=== PATIENT | female | born 1960 | race Native Hawaiian/Other Pacific Islander ===

== ENCOUNTER 2017-07-08 10:22 | Emergency (ER) | payer OTHER ==
[2017-07-08] MEDS ORDERED: SODIUM CHLORIDE 0.9% 1,000 ML IV STA (11:09)
--- NOTE | 2017-07-08 11:10 | ED ---
Abdominal Pain HPI - General Chief Complaint: Abdominal Pain Stated Complaint: abdominal pain Time Seen by Provider: 07/08/17 10:39 Source: patient, RN notes reviewed, old records reviewed Mode of arrival: ambulatory Limitations: no limitations - History of Present Illness Initial Comments: This is a 56-year-old female presents emergency Department chief complaint of abdominal fullness, and extension. Patient reports that she's had a bowel movement approximately 3 days ago and states she feels constipated. She was sent over here by medics breath or further evaluation. She reports she's had no fever or chills. She states she feels nauseated but has no vomiting. Patient reports that she did tolerate her meals earlier today. She states that she has had a history of diverticulitis but this does not feel anything similar to that. She was told that she does have a urinary tract infection at the urgent care. She was started on antibiotic. Patient states that she is also concern for sexually transmitted infection and would like to be tested.Patient denies any recent fever, chills, shortness of breath, chest pain, back pain, vomiting, numbness or tingling, dysuria or hematuria, constipation or diarrhea, headaches or visual changes, or any other current symptoms - Related Data Home Medications Medication Instructions Recorded Confirmed Aspirin 325 mg PO DAILY 07/08/17 07/08/17 Multivitamins, Thera [Multivitamin 1 tab PO DAILY 07/08/17 07/08/17 (formulary)] metFORMIN HCL 1,000 mg PO BID 07/08/17 07/08/17 Allergies Allergy/AdvReac Type Severity Reaction Status Date / Time No Known Allergies Allergy Verified 07/08/17 10:39 Review of Systems ROS Statement: Those systems with pertinent positive or pertinent negative responses have been documented in the HPI. ROS Other: All systems not noted in ROS Statement are negative. Past Medical History Past Medical History: Asthma, Diabetes Mellitus Additional Past Medical History / Comment(s): diverticulitis, TB History of Any Multi-Drug Resistant Organisms: None Reported Past Surgical History: Section, Cholecystectomy, Tonsillectomy, Tubal Ligation Past Psychological History: No Psychological Hx Reported Smoking Status: Current every day smoker Past Alcohol Use History: None Reported Past Drug Use History: None Reported General Exam - General Exam Comments Initial Comments: 56-year-old female. No acute distress. Limitations: no limitations General appearance: alert, in no apparent distress Head exam: Present: atraumatic, normocephalic, normal inspection Eye exam: Present: normal appearance, PERRL, EOMI. Absent: scleral icterus, conjunctival injection, periorbital swelling ENT exam: Present: normal exam, mucous membranes moist Neck exam: Present: normal inspection. Absent: tenderness, meningismus, lymphadenopathy Respiratory exam: Present: normal lung sounds bilaterally. Absent: respiratory distress, wheezes, rales, rhonchi, stridor GI/Abdominal exam: Present: soft, normal bowel sounds. Absent: distended, tenderness, guarding, rebound, rigid Extremities exam: Present: normal inspection, full ROM, normal capillary refill. Absent: tenderness, pedal edema, joint swelling, calf tenderness Back exam: Present: normal inspection Neurological exam: Present: alert, oriented X3, CN II-XII intact Psychiatric exam: Present: normal affect, normal mood Course Vital Signs 07/08/17 07/08/17 10:31 12:57 Temperature 98.1 F 97.7 F Pulse Rate 72 68 Respiratory 20 18 Rate Blood Pressure 135/63 143/70 O2 Sat by Pulse 100 97 Oximetry Medical Decision Making - Medical Decision Making 6-year-old female presents emergency Department encouraged to come here urgent care. She reports she has a fullness in her abdomen. Denies chest pain shortness breath. Patient states that she's not had a bowel movement the past 2 days. Patient also reports she is concerned for urinary tract infection. This time urinalysis is positive for infection, culture will be obtained. Patient was discharged with Bactrim by the urgent care. She'll be given a starter pack here. There is a patient's labwork was reviewed and were within normal limits. Patient does have some minor abdominal distention. She has been able to tolerate food and fluids with the emergency department. Patient be discharged with magnesium citrate and Dulcolax. Discussed using these and taking that medication for a urinary tract infection. Discussed following up with primary care provider. Discussed that if she has vomiting, fever or any other abnormal she should return here for a CT. Patient reports she does not want a CAT scan at this time. Patient agrees treatment plan will comply. Return parameters were discussed. - Lab Data Result diagrams: 07/08/17 11:13 07/08/17 11:13 Lab Results 07/08/17 07/08/1707/08/17 Range/Units 11:13 11:13 11:13 WBC 5.5 (3.8-10.6) k/uL RBC 4.52 (3.80-5.40) m/uL Hgb 11.9 (11.4-16.0) gm/dL Hct 35.9 (34.0-46.0) % MCV 79.5 L (80.0-100.0) fL MCH 26.4 (25.0-35.0) pg MCHC 33.2 (31.0-37.0) g/dL RDW 15.5 (11.5-15.5) % Plt Count 169 (150-450) k/uL Neutrophils % 62 % Lymphocytes % 29 % Monocytes % 6 % Eosinophils % 1 % Basophils % 1 % Neutrophils # 3.4 (1.3-7.7) k/uL Lymphocytes # 1.6 (1.0-4.8) k/uL Monocytes # 0.3 (0-1.0) k/uL Eosinophils # 0.1 (0-0.7) k/uL Basophils # 0.0 (0-0.2) k/uL PT 9.9 (9.0-12.0) sec INR 1.0 (<1.2) APTT 24.2 (22.0-30.0) sec Sodium 138 (137-145) mmol/L Potassium 4.5 (3.5-5.1) mmol/L Chloride 105 (98-107) mmol/L Carbon Dioxide 22 (22-30) mmol/L Anion Gap 11 mmol/L BUN 14 (7-17) mg/dL Creatinine 0.50 L (0.52-1.04) mg/dL Est GFR (MDRD) Af Amer >60 (>60 ml/min/1.73 sqM) Est GFR (MDRD) Non-Af >60 (>60 ml/min/1.73 sqM) Glucose 238 H (74-99) mg/dL Calcium 9.3 (8.4-10.2) mg/dL Total Bilirubin 0.3 (0.2-1.3) mg/dL AST 16 (14-36) U/L ALT 30 (9-52) U/L Alkaline Phosphatase 58 (38-126) U/L Total Protein 6.8 (6.3-8.2) g/dL Albumin 4.0 (3.5-5.0) g/dL Amylase <30 L (30-110) U/L Lipase 59 (23-300) U/L Urine Color Urine Appearance (Clear) Urine pH (5.0-8.0) Ur Specific [place] (1.001-1.035) Urine Protein (Negative) Urine Glucose (UA) (Negative) Urine Ketones (Negative) Urine Blood (Negative) Urine Nitrite (Negative) Urine Bilirubin (Negative) Urine Urobilinogen (<2.0) mg/dL Ur Leukocyte Esterase (Negative) Urine RBC (0-5) /hpf Urine WBC (0-5) /hpf Ur Squamous Epith Cells (0-4) /hpf Urine Bacteria (None) /hpf Trichomonas Ag (Rapid) (Negative) 07/08/17 07/08/17 Range/Units 11:13 12:35 WBC (3.8-10.6) k/uL RBC (3.80-5.40) m/uL Hgb (11.4-16.0) gm/dL Hct (34.0-46.0) % MCV (80.0-100.0) fL MCH (25.0-35.0) pg MCHC (31.0-37.0) g/dL RDW (11.5-15.5) % Plt Count (150-450) k/uL Neutrophils % % Lymphocytes % % Monocytes % % Eosinophils % % Basophils % % Neutrophils # (1.3-7.7) k/uL Lymphocytes # (1.0-4.8) k/uL Monocytes # (0-1.0) k/uL Eosinophils # (0-0.7) k/uL Basophils # (0-0.2) k/uL PT (9.0-12.0) sec INR (<1.2) APTT (22.0-30.0) sec Sodium (137-145) mmol/L Potassium (3.5-5.1) mmol/L Chloride (98-107) mmol/L Carbon Dioxide (22-30) mmol/L Anion Gap mmol/L BUN (7-17) mg/dL Creatinine (0.52-1.04) mg/dL Est GFR (MDRD) Af Amer (>60 ml/min/1.73 sqM) Est GFR (MDRD) Non-Af (>60 ml/min/1.73 sqM) Glucose (74-99) mg/dL Calcium (8.4-10.2) mg/dL Total Bilirubin (0.2-1.3) mg/dL AST (14-36) U/L ALT (9-52) U/L Alkaline Phosphatase (38-126) U/L Total Protein (6.3-8.2) g/dL Albumin (3.5-5.0) g/dL Amylase (30-110) U/L Lipase (23-300) U/L Urine Color Yellow Urine Appearance Cloudy H (Clear) Urine pH 6.0 (5.0-8.0) Ur Specific [place] 1.019 (1.001-1.035) Urine Protein Trace H (Negative) Urine Glucose (UA) 4+ H (Negative) Urine Ketones Negative (Negative) Urine Blood Negative (Negative) Urine Nitrite Negative (Negative) Urine Bilirubin Negative (Negative) Urine Urobilinogen 3.0 (<2.0) mg/dL Ur Leukocyte Esterase Moderate H (Negative) Urine RBC 3 (0-5) /hpf Urine WBC 47 H (0-5) /hpf Ur Squamous Epith Cells 18 H (0-4) /hpf Urine Bacteria Rare H (None) /hpf Trichomonas Ag (Rapid) Negative (Negative) - Radiology Data Radiology results: report reviewed Interpreted by me: Patient is non obstructive bowel gas movement. Disposition Clinical Impression: UTI (urinary tract infection), Constipation Disposition: HOME SELF-CARE Condition: Good Instructions: Constipation (ED), Urinary Tract Infection in Women (ED) Additional Instructions: Patient advised to take the medications as prescribed. Follow-up with primary care provider. Return to emergency department if any alarming signs or symptoms occur. Referrals: Jaime Peck MD [Primary Care Provider] - 1-2 days Time of Disposition: 12:37
[2017-07-08 11:29] LABS: Basophils % (A) 1 %; CH 26.9; Eosinophils # (A) 0.1 k/uL (0-0.7); Eosinophils % (A) 1 %; HCT 35.9 % (34.0-46.0); HDW 2.93; HGB 11.9 gm/dL (11.4-16.0); Luc # (Auto) 0.05; Luc % (Auto) 1; Lymphocytes # (A) 1.6 k/uL (1.0-4.8); Lymphocytes % (A) 29 %; MCH 26.4 pg (25.0-35.0); MCHC 33.2 g/dL (31.0-37.0); MCV 79.5 fL (80.0-100.0); Monocytes # (A) 0.3 k/uL (0-1.0); Monocytes % (A) 6 %; Neutrophils # (A) 3.4 k/uL (1.3-7.7); Neutrophils % (A) 62 %; RBC 4.52 m/uL (3.80-5.40); RDW 15.5 % (11.5-15.5); WBC 5.5 k/uL (3.8-10.6); WBC (Perox) 5.39
[2017-07-08 11:40] LABS: Appearance,Urine Cloudy (Clear); Bacteria,Urine Rare /hpf; Bilirubin,Urine Negative (Negative); Glucose,Urine (UA) 4+ (Negative); Ketones,Urine Negative (Negative); Leukocyte Esterase,Urine Moderate (Negative); Nitrite,Urine Negative (Negative); Particle Count 3101; Protein,Urine Trace (Negative); RBC,Urine 3 /hpf (0-5); Specific Gravity,Urine 1.019 (1.001-1.035); Squamous Epithelial Cell,Urine 18 /hpf (0-4); UA Billing (MACRO vs. MICRO) MICRO; WBC,Urine 47 /hpf (0-5)
[2017-07-08 11:41] LABS: Partial Thromboplastin Time 24.2 sec (22.0-30.0); Prothrombin Time 9.9 sec (9.0-12.0)
[2017-07-08 11:43] LABS: ALT 30 U/L (9-52); AST 16 U/L (14-36); Alkaline Phosphatase 58 U/L (38-126); Amylase <30 U/L (30-110); Anion Gap 11 mmol/L; Blood Urea Nitrogen 14 mg/dL (7-17); Calcium 9.3 mg/dL (8.4-10.2); Carbon Dioxide 22 mmol/L (22-30); Chloride 105 mmol/L (98-107); Glucose 238 mg/dL (74-99); Non-African American GFR(MDRD) >60 (>60 ml/min/1.73 sqM); Potassium 4.5 mmol/L (3.5-5.1); Sodium 138 mmol/L (137-145); Total Bilirubin 0.3 mg/dL (0.2-1.3); Total Protein 6.8 g/dL (6.3-8.2)
--- NOTE | 2017-07-08 12:01 | XR ---
EXAMINATION TYPE: XR KUB DATE OF EXAM: 07/08/2017 COMPARISON: NONE HISTORY: Pain TECHNIQUE: Single supine KUB image of the abdomen is obtained FINDINGS: Small bowel demonstrates no evidence for dilatation or air fluid levels. Gas and fecal material is seen in non-distended colon. No convincing evidence for pneumoperitoneum. No unusual calcifications. The lung bases are clear. The osseous structures are intact. IMPRESSION: 1. Overall nonobstructive bowel gas pattern.
[2017-07-08] MEDS ORDERED: MAGNESIUM CITRATE 296 ML BOTTLE PO ONE (12:36)
[2017-07-08] MEDS ORDERED: BISACODYL 5 MG TABLET.DR PO STA (12:36)
[2017-07-08] MEDS ORDERED: SULFAMETH-TMP DS STARTER PACK 2 TAB BTL PO STA (12:36)
[2017-07-08 12:58] VITALS: BP 143/70; PULSE 68; RESP 18; TEMP 97.7
== END 2017-07-08 12:58 | disposition home or self-care (01) ==
LOC: EC 10:22
DX: N39.0 Urinary tract infection, site not specified (principal); K59.00 Constipation, unspecified; E11.9 Type 2 diabetes mellitus without complications; F17.200 Nicotine dependence, unspecified, uncomplicated; Z87.19 Personal history of other diseases of the digestive system; Z98.51 Tubal ligation status; Z98.890 Other specified postprocedural states; Z90.49 Acquired absence of other specified parts of digestive tract; Z79.82 Long term (current) use of aspirin; Z79.84 Long term (current) use of oral hypoglycemic drugs; Z79.899 Other long term (current) drug therapy
CPT/HCPCS: 36415; 74000; 80053; 81001; 82150; 83690; 85025; 85610; 85730; 87070; 87077; 87086; 87186; 87205; 87491; 87591; 87808; 96360; 99284

== ENCOUNTER → 2017-09-08 | Outpatient (CLI) | payer OTHER ==
--- NOTE | 2017-09-08 07:21 | XR ---
EXAMINATION TYPE: XR chest 2V DATE OF EXAM: 09/08/2017 COMPARISON: None HISTORY: 56-year-old female hyperinflation of lungs, shortness of breath TECHNIQUE: Frontal and lateral views FINDINGS: The cardiomediastinal silhouette, aorta, and pulmonary vasculature are within normal limits. Mild hyp erinflation likely related to depth of inspiration. Strandy atelectasis lower lungs. Otherwise, lungs and pleural spaces are clear. IMPRESSION: No acute cardiopulmonary process.
[2017-09-08 07:28] LABS: Basophils % (A) 1 %; Eosinophils # (A) 0.1 k/uL (0-0.7); Eosinophils % (A) 1 %; HCT 38.6 % (34.0-46.0); HGB 12.6 gm/dL (11.4-16.0); Lymphocytes # (A) 1.8 k/uL (1.0-4.8); Lymphocytes % (A) 28 %; MCH 26.5 pg (25.0-35.0); MCHC 32.7 g/dL (31.0-37.0); MCV 81.2 fL (80.0-100.0); Mean Platelet Volume 6.7; Monocytes # (A) 0.4 k/uL (0-1.0); Monocytes % (A) 6 %; Neutrophils # (A) 3.9 k/uL (1.3-7.7); Neutrophils % (A) 62 %; Platelet Count 188 k/uL (150-450); RBC 4.75 m/uL (3.80-5.40); WBC 6.2 k/uL (3.8-10.6)
[2017-09-08 07:46] LABS: ALT 29 U/L (9-52); AST 14 U/L (14-36); Albumin 4.2 g/dL (3.5-5.0); Alkaline Phosphatase 52 U/L (38-126); Anion Gap 7 mmol/L; Blood Urea Nitrogen 11 mg/dL (7-17); Calcium 9.8 mg/dL (8.4-10.2); Carbon Dioxide 27 mmol/L (22-30); Chloride 104 mmol/L (98-107); Cholesterol 138 mg/dL (<200); Glucose 280 mg/dL (74-99); HDL Cholesterol 38 mg/dL (40-60); LDL Cholesterol,Calculated 78 mg/dL (0-99); Magnesium 1.4 mg/dL (1.6-2.3); Phosphorus 3.6 mg/dL (2.5-4.5); Potassium 4.9 mmol/L (3.5-5.1); Sodium 138 mmol/L (137-145); Total Bilirubin 0.3 mg/dL (0.2-1.3); Total Protein 7.3 g/dL (6.3-8.2); Triglycerides 112 mg/dL (<150); Uric Acid 4.8 mg/dL (3.7-7.4)
[2017-09-08 12:29] LABS: Hemoglobin A1C 10.2 % (4.0-6.0)
[2017-09-08 12:34] LABS: Vitamin D 25 Hydroxy 32.1 ng/mL (30.0-100.0)
[2017-09-08 13:44] LABS: Hepatitis C IgG Antibody Non-Reactive (Non-Reactive)
== END | disposition home or self-care (01) ==
LOC: LABWHC1 06:34
PROVIDERS: ATTEND Internal Medicine
DX: R91.8 Other nonspecific abnormal finding of lung field (principal); E11.9 Type 2 diabetes mellitus without complications; E78.5 Hyperlipidemia, unspecified; E55.9 Vitamin D deficiency, unspecified; Z86.11 Personal history of tuberculosis
CPT/HCPCS: 36415; 71020; 80053; 80061; 82306; 83036; 83735; 84100; 84443; 84550; 85025; 86803

== ENCOUNTER → 2017-10-15 | Outpatient (CLI) | payer OTHER ==
[2017-10-15 07:54] LABS: ALT 25 U/L (9-52); AST 17 U/L (14-36); Albumin 4.3 g/dL (3.5-5.0); Alkaline Phosphatase 55 U/L (38-126); Anion Gap 11 mmol/L; Bilirubin, Delta 0.2 mg/dL (0.0-0.2); Blood Urea Nitrogen 16 mg/dL (7-17); Calcium 9.8 mg/dL (8.4-10.2); Carbon Dioxide 25 mmol/L (22-30); Chloride 102 mmol/L (98-107); Glucose 196 mg/dL (74-99); Magnesium 1.4 mg/dL (1.6-2.3); Phosphorus 3.9 mg/dL (2.5-4.5); Potassium 4.7 mmol/L (3.5-5.1); Sodium 138 mmol/L (137-145); Total Bilirubin 0.2 mg/dL (0.2-1.3)
[2017-10-15 14:15] LABS: Hemoglobin A1C 9.7 % (4.0-6.0)
--- NOTE | 2017-10-16 09:29 | MM ---
Reason for exam: screening (asymptomatic). History: Patient is postmenopausal. Physical Findings: A clinical breast exam by your physician is recommended on an annual basis and results should be correlated with mammographic findings. MG Screening Mammo w CAD Bilateral CC and MLO view(s) were taken. There are scattered fibroglandular densities. No suspicious abnormality. ASSESSMENT: Negative, BI-RAD 1 RECOMMENDATION: Routine screening mammogram of both breasts in 1 year.
== END | disposition home or self-care (01) ==
LOC: RADMAMWWP 06:33
PROVIDERS: ATTEND Internal Medicine
DX: Z12.31 Encounter for screening mammogram for malignant neoplasm of breast (principal); E55.9 Vitamin D deficiency, unspecified; J44.9 Chronic obstructive pulmonary disease, unspecified; E11.9 Type 2 diabetes mellitus without complications
CPT/HCPCS: 77067; 80048; 80076; 82306; 83036; 83735; 84100

== ENCOUNTER → 2017-12-04 | Outpatient (CLI) | payer OTHER ==
[2017-12-04 07:30] LABS: ALT 28 U/L (9-52); AST 19 U/L (14-36); Anion Gap 11 mmol/L; Blood Urea Nitrogen 14 mg/dL (7-17); Calcium 9.8 mg/dL (8.4-10.2); Carbon Dioxide 26 mmol/L (22-30); Chloride 105 mmol/L (98-107); Glucose 182 mg/dL (74-99); Potassium 4.8 mmol/L (3.5-5.1); Sodium 142 mmol/L (137-145)
== END | disposition home or self-care (01) ==
LOC: LABWHC1 06:35
PROVIDERS: ATTEND Internal Medicine
DX: E11.9 Type 2 diabetes mellitus without complications (principal)
CPT/HCPCS: 36415; 80048; 84450; 84460

== ENCOUNTER 2018-01-22 20:08 | Emergency (ER) | payer OTHER ==
[2018-01-22 20:19] VITALS: RESP 18
--- NOTE | 2018-01-22 21:01 | ED ---
General Adult HPI - General Chief complaint: Skin/Abscess/Foreign Body Stated complaint: Urogenital Time Seen by Provider: 01/22/18 21:01 Source: patient Mode of arrival: ambulatory Limitations: no limitations - History of Present Illness Initial comments: Patient is a 57-year-old female with a past medical history significant for diabetes and recurrent skin abscesses. Patient presents to the emergency department today for evaluation of an abscess on her left inner thigh. Patient reports that he noticed the swelling earlier in the week and that is progressively become larger and more tender. Patient states that she has had very large abscesses requiring I and D and packing in the past so she wanted to get this when treated early. Patient denies any fevers, chills, nausea, vomiting. Patient expresses concern because she is diabetic that she is a higher risk for infection. Patient also states that she is on aspirin which has resulted in her having significant bleeding with incision and drainage in the past. - Related Data Home Medications Medication Instructions Recorded Confirmed Aspirin 325 mg PO DAILY 07/08/17 01/22/18 Multivitamins, Thera [Multivitamin 1 tab PO DAILY 07/08/17 01/22/18 (formulary)] metFORMIN HCL 1,000 mg PO BID 07/08/17 01/22/18 Ascorbic Acid [Vitamin C] 500 mg PO DAILY 01/22/18 01/22/18 Cholecalciferol [Vitamin D3] 1,000 unit PO DAILY 01/22/18 01/22/18 Cyanocobalamin [Vitamin B-12] 500 mcg PO DAILY 01/22/18 01/22/18 Previous Rx's Medication Instructions Recorded Ibuprofen [Motrin] 800 mg PO TID #30 tab 01/22/18 Sulfamethox-Tmp 800-160Mg [Bactrim 1 tab PO Q12HR #14 tab 01/22/18 DS 800-160 mg] Allergies Allergy/AdvReac Type Severity Reaction Status Date / Time No Known Allergies Allergy Verified 01/22/18 21:35 Review of Systems ROS Statement: Those systems with pertinent positive or pertinent negative responses have been documented in the HPI. ROS Other: All systems not noted in ROS Statement are negative. Constitutional: Denies: fever, chills Respiratory: Denies: cough, dyspnea Cardiovascular: Denies: chest pain, palpitations Endocrine: Denies: fatigue Gastrointestinal: Denies: abdominal pain, nausea, vomiting Genitourinary: Denies: dysuria Musculoskeletal: Denies: back pain Skin: Reports: rash, lesions Neurological: Denies: weakness Psychiatric: Denies: anxiety, depression Hematological/Lymphatic: Reports: easy bleeding (On aspirin) Past Medical History Past Medical History: Asthma, Diabetes Mellitus Additional Past Medical History / Comment(s): diverticulitis, TB in past History of Any Multi-Drug Resistant Organisms: None Reported Past Surgical History: Section, Cholecystectomy, Tonsillectomy, Tubal Ligation Additional Past Surgical History / Comment(s): ovarian cyst removed Past Psychological History: No Psychological Hx Reported Smoking Status: Current every day smoker Past Alcohol Use History: None Reported Past Drug Use History: None Reported General Exam Limitations: no limitations General appearance: alert, in no apparent distress Head exam: Present: atraumatic, normocephalic Eye exam: Present: normal appearance, PERRL, EOMI. Absent: scleral icterus, conjunctival injection, periorbital swelling Neck exam: Present: normal inspection Respiratory exam: Absent: respiratory distress Cardiovascular Exam: Present: normal rhythm GI/Abdominal exam: Present: soft. Absent: tenderness Rectal exam: Present: deferred External exam: Present: normal external exam Extremities exam: Present: full ROM Back exam: Present: full ROM Neurological exam: Present: alert, oriented X3 Psychiatric exam: Present: normal affect, normal mood Skin exam: Present: warm, dry, other Expanded Type of lesion: Present: abscess (Abscess approximately 2 cm x 1 cm in size on the left inner thigh. Palpable fluctuance.) Course Vital Signs 01/22/18 20:15 Temperature 99.1 F Pulse Rate 88 Respiratory 18 Rate Blood Pressure 140/75 O2 Sat by Pulse 99 Oximetry Procedures - Incision & Drainage Consent Obtained: verbal consent Time Out Performed?: Yes Site: lower extremity Anesthetic Used: lidocaine 1% I&D Cleaning Method: Betadine Scalpel Used: #11 Needle Aspiration Performed?: Yes Irrigation Performed?: No I&D Drainage Obtained: Pus, Blood Culture Obtained?: No Patient Tolerated Procedure: well Medical Decision Making - Medical Decision Making She was seen and evaluated, history was obtained from the patient and her at bedside Patient is an obese diabetic with recurrent abscesses, patient has multiple skin changes on physical exam consistent with recurrent abscesses. Physical exam reveals a 2 cm x 1 cm area of induration and fluctuance in the fatty tissue of left inner thigh. The son anatomic location I have minimal concern for underlying blood vessel or nerve. Area was cleaned with Betadine, local anesthetic was used and the abscess was incised and drained with an 11 blade. Purulent material was obtained, however this seemed to be some surrounding sialitis. At this time I do feel antibiotics are indicated. I will prescribe the patient Bactrim. Because pharmacies are closed at this time I will give first dose of Bactrim here in the ER. Wound care was discussed with the patient, she has had multiple I&D's in the past and is familiar and comfortable with caring for the wound. Indications for return including worsening pain, worsening redness or swelling, fevers, signs of illness or any new or concerning symptoms were discussed patient. Patient expressed understanding and agreement with discharge. Disposition Clinical Impression: Abscess Disposition: HOME SELF-CARE Condition: Good Instructions: Abscess Incision and Drainage (ED) Prescriptions: Ibuprofen [Motrin] 800 mg PO TID #30 tab Sulfamethox-Tmp 800-160Mg [Bactrim DS 800-160 mg] 1 tab PO Q12HR #14 tab Is patient prescribed a controlled substance at d/c from ED?: No If prescribed controlled substance>3 days was MAPS reviewed?: No When asked, does pt state using other controlled substances?: No Referrals: Jaime Peck MD [Primary Care Provider] - 1-2 days
[2018-01-22] MEDS ORDERED: SULFAMETH-TMP DS STARTER PACK 2 TAB BTL PO STA (22:24)
[2018-01-22] MEDS ORDERED: IBUPROFEN 800 MG TAB PO STA (22:25)
[2018-01-22 22:41] VITALS: BP 144/74; PULSE 78; TEMP 98.2
== END 2018-01-22 22:42 | disposition home or self-care (01) ==
LOC: EC 20:08
DX: L02.416 Cutaneous abscess of left lower limb (principal); E11.9 Type 2 diabetes mellitus without complications; F17.200 Nicotine dependence, unspecified, uncomplicated; Z79.82 Long term (current) use of aspirin; Z79.84 Long term (current) use of oral hypoglycemic drugs; Z79.899 Other long term (current) drug therapy
CPT/HCPCS: 10060; 99282

== ENCOUNTER 2018-08-04 06:24 | Observation (INO) | payer OTHER ==
[2018-08-04 07:00] LABS: Glucose,Whole Blood 334 mg/dL (75-99)
[2018-08-04 07:05] LABS: Basophils % (A) 1 %; Eosinophils # (A) 0.1 k/uL (0-0.7); Eosinophils % (A) 2 %; HCT 39.3 % (34.0-46.0); HGB 13.3 gm/dL (11.4-16.0); Lymphocytes # (A) 1.4 k/uL (1.0-4.8); Lymphocytes % (A) 29 %; MCH 27.1 pg (25.0-35.0); MCHC 33.8 g/dL (31.0-37.0); MCV 80.2 fL (80.0-100.0); Mean Platelet Volume 6.8; Monocytes # (A) 0.4 k/uL (0-1.0); Monocytes % (A) 7 %; Neutrophils % (A) 61 %; Platelet Count 172 k/uL (150-450); RDW 14.2 % (11.5-15.5)
--- NOTE | 2018-08-04 07:11 | XR ---
EXAMINATION TYPE: XR chest 2V DATE OF EXAM: 08/04/2018 COMPARISON: 09/08/2017 HISTORY: Chest pain TECHNIQUE: Frontal and lateral views of the chest are obtained. FINDINGS: Heart and mediastinum are normal. Lungs are clear. Diaphragm is normal. There are chest le ads. Bony thorax is intact. IMPRESSION: No cardiopulmonary disease. No change.
[2018-08-04 07:13] LABS: INR 0.9 (<1.2); Partial Thromboplastin Time 24.6 sec (22.0-30.0); Prothrombin Time 9.5 sec (9.0-12.0)
[2018-08-04] MEDS ORDERED: MECLIZINE 25 MG TAB PO STA (07:17)
--- NOTE | 2018-08-04 07:17 | ED ---
General Adult HPI - General Chief complaint: Chest Pain Stated complaint: KALPESH Time Seen by Provider: 08/04/18 07:00 Source: patient, RN notes reviewed Mode of arrival: wheelchair Limitations: no limitations - History of Present Illness Initial comments: This is a 57-year-old female patient states she woke up this morning and the whole room was spinning she felt like she was on a right-sided seizure point. Patient states shortly thereafter she became very nauseous headache pressure on her chest as if an elephant was sitting on and became very short of breath. Patient states the pressure also radiated to her neck. Patient did indicate that the more she moved worse the dizziness became per patient denied any headache patient denied numbness weakness. Patient denies any palpitations. Patient states she is a diabetic she does not have high blood pressure does not have any high cholesterol but she does smoke. Patient also states she has a significant family history of heart disease. Patient also states she had TB in the past but was treated for over a year. Patient was then cleared. Patient denies any abdominal pain patient isn't vomiting diarrhea. Patient denies any recent fever chills or cough. Patient denies any recent trauma. - Related Data Home Medications Medication Instructions Recorded Confirmed Aspirin 325 mg PO DAILY 07/08/17 08/04/18 Ascorbic Acid [Vitamin C] 500 mg PO DAILY 01/22/18 08/04/18 Cholecalciferol [Vitamin D3] 5,000 unit PO DAILY 01/22/18 08/04/18 Cyanocobalamin [Vitamin B-12] 500 mcg PO DAILY 01/22/18 08/04/18 Aspirin/Acetaminophen/Caffeine 4 tab PO DAILY PRN 08/04/18 08/04/18 [Excedrin Migraine Caplet] Ibuprofen [Motrin] 1,600 mg PO TID PRN 08/04/18 08/04/18 Ranitidine HCl [Zantac] 150 mg PO DAILY PRN 08/04/18 08/04/18 Sertraline [Zoloft] 50 mg PO DAILY 08/04/18 08/04/18 glipiZIDE [Glucotrol] 5 mg PO AC-BRKFST 08/04/18 08/04/18 Allergies Allergy/AdvReac Type Severity Reaction Status Date / Time No Known Allergies Allergy Verified 08/04/18 07:54 Review of Systems ROS Statement: Those systems with pertinent positive or pertinent negative responses have been documented in the HPI. ROS Other: All systems not noted in ROS Statement are negative. Past Medical History Past Medical History: Asthma, Diabetes Mellitus Additional Past Medical History / Comment(s): diverticulitis, TB in past History of Any Multi-Drug Resistant Organisms: None Reported Past Surgical History: Section, Cholecystectomy, Tonsillectomy, Tubal Ligation Additional Past Surgical History / Comment(s): ovarian cyst removed Past Psychological History: No Psychological Hx Reported Smoking Status: Current every day smoker Past Alcohol Use History: None Reported Past Drug Use History: None Reported General Exam - General Exam Comments Initial Comments: GENERAL: Patient is well-developed and well-nourished. Patient is nontoxic and well- hydrated and is in mild distress. ENT: Neck is soft and supple. No significant lymphadenopathy is noted. Oropharynx is clear. Moist mucous membranes. Neck has full range of motion without eliciting any pain. EYES: The sclera were anicteric and conjunctiva were pink and moist. Extraocular movements were intact and pupils were equal round and reactive to light. Eyelids were unremarkable. PULMONARY: Unlabored respirations. Good breath sounds bilaterally. No audible rales rhonchi or wheezing was noted. CARDIOVASCULAR: There is a regular rate and rhythm without any murmurs gallops or rubs. ABDOMEN: Soft and nontender with normal bowel sounds. No palpable organomegaly was noted. There is no palpable pulsatile mass. SKIN: Skin is clear with no lesions or rashes and otherwise unremarkable. NEUROLOGIC: Patient is alert and oriented x3. Cranial nerves II through XII are grossly intact. Motor and sensory are also intact. Normal speech, volume and content. Symmetrical smile. Finger-nose testing was normal bilaterally MUSCULOSKELETAL: Normal extremities with adequate strength and full range of motion. No lower extremity swelling or edema. No calf tenderness. LYMPHATICS: No significant lymphadenopathy is noted PSYCHIATRIC: Normal psychiatric evaluation Limitations: no limitations Course Vital Signs 08/04/18 08/04/18 08/04/18 06:25 06:37 07:43 Temperature 98 F Pulse Rate 79 75 Respiratory 28 H 24 18 Rate Blood Pressure 162/82 116/65 O2 Sat by Pulse 100 98 Oximetry Medical Decision Making - Medical Decision Making EKG shows normal sinus rhythm at 72 bpm [place] interval is on a 56 QRS is 96 Q-T intervals 406 QTC is 444. Patient's EKG shows no ST segment elevation or depression or T wave abnormalities are noted. CT of the brain shows no acute abnormality of the brain however patient does have a right maxillary sinusitis. I started the patient Unasyn for sinusitis. I admitted the patient for the chest pain in consulted cardiology continue Nitropaste and aspirin on the floor. I also gave the patient Antivert for the vertigo. Chest x-ray shows no acute abnormality - Lab Data Result diagrams: 08/04/18 06:35 08/04/18 06:35 Lab Results 08/04/18 08/04/18 08/04/18 Range/Units 06:35 06:35 06:35 WBC 5.0 (3.8-10.6) k/uL RBC 4.90 (3.80-5.40) m/uL Hgb 13.3 (11.4-16.0) gm/dL Hct 39.3 (34.0-46.0) % MCV 80.2 (80.0-100.0) fL MCH 27.1 (25.0-35.0) pg MCHC 33.8 (31.0-37.0) g/dL RDW 14.2 (11.5-15.5) % Plt Count 172 (150-450) k/uL Neutrophils % 61 % Lymphocytes % 29 % Monocytes % 7 % Eosinophils % 2 % Basophils % 1 % Neutrophils # 3.0 (1.3-7.7) k/uL Lymphocytes # 1.4 (1.0-4.8) k/uL Monocytes # 0.4 (0-1.0) k/uL Eosinophils # 0.1 (0-0.7) k/uL Basophils # 0.0 (0-0.2) k/uL PT (9.0-12.0) sec INR (<1.2) APTT (22.0-30.0) sec Sodium 136 L (137-145) mmol/L Potassium 4.5 (3.5-5.1) mmol/L Chloride 104 (98-107) mmol/L Carbon Dioxide 23 (22-30) mmol/L Anion Gap 9 mmol/L BUN 13 (7-17) mg/dL Creatinine 0.46 L (0.52-1.04) mg/dL Est GFR (CKD-EPI)AfAm >90 (>60 ml/min/1.73 sqM) Est GFR (CKD-EPI)NonAf >90 (>60 ml/min/1.73 sqM) Glucose 319 H (74-99) mg/dL POC Glucose (mg/dL) (75-99) mg/dL POC Glu District Supervisor ID Calcium 9.3 (8.4-10.2) mg/dL Magnesium 1.3 L (1.6-2.3) mg/dL Total Bilirubin 0.4 (0.2-1.3) mg/dL AST 17 (14-36) U/L ALT 26 (9-52) U/L Alkaline Phosphatase 50 (38-126) U/L Total Creatine Kinase 49 (30-135) U/L CK-MB (CK-2) 0.6 (0.0-2.4) ng/mL CK-MB (CK-2) Rel Index 1.2 Troponin I <0.012 (0.000-0.034) ng/mL Total Protein 6.7 (6.3-8.2) g/dL Albumin 3.8 (3.5-5.0) g/dL Acetone, Qual (Negative) 08/04/18 08/04/18 08/04/18 Range/Units 06:35 06:35 06:41 WBC (3.8-10.6) k/uL RBC (3.80-5.40) m/uL Hgb (11.4-16.0) gm/dL Hct (34.0-46.0) % MCV (80.0-100.0) fL MCH (25.0-35.0) pg MCHC (31.0-37.0) g/dL RDW (11.5-15.5) % Plt Count (150-450) k/uL Neutrophils % % Lymphocytes % % Monocytes % % Eosinophils % % Basophils % % Neutrophils # (1.3-7.7) k/uL Lymphocytes # (1.0-4.8) k/uL Monocytes # (0-1.0) k/uL Eosinophils # (0-0.7) k/uL Basophils # (0-0.2) k/uL PT 9.5 (9.0-12.0) sec INR 0.9 (<1.2) APTT 24.6 (22.0-30.0) sec Sodium (137-145) mmol/L Potassium (3.5-5.1) mmol/L Chloride (98-107) mmol/L Carbon Dioxide (22-30) mmol/L Anion Gap mmol/L BUN (7-17) mg/dL Creatinine (0.52-1.04) mg/dL Est GFR (CKD-EPI)AfAm (>60 ml/min/1.73 sqM) Est GFR (CKD-EPI)NonAf (>60 ml/min/1.73 sqM) Glucose (74-99) mg/dL POC Glucose (mg/dL) 334 H (75-99) mg/dL POC Glu District Supervisor ID Mehnaz Chowdhury Calcium (8.4-10.2) mg/dL Magnesium (1.6-2.3) mg/dL Total Bilirubin (0.2-1.3) mg/dL AST (14-36) U/L ALT (9-52) U/L Alkaline Phosphatase (38-126) U/L Total Creatine Kinase (30-135) U/L CK-MB (CK-2) (0.0-2.4) ng/mL CK-MB (CK-2) Rel Index Troponin I (0.000-0.034) ng/mL Total Protein (6.3-8.2) g/dL Albumin (3.5-5.0) g/dL Acetone, Qual Negative (Negative) Disposition Clinical Impression: Chest pain, Vertigo, Sinusitis, acute maxillary Disposition: ADMITTED IP TO THIS [facility] Referrals: Tila Viera MD [Primary Care Provider] - 1-2 days Time of Disposition: 09:28
[2018-08-04 07:19] LABS: ALT 26 U/L (9-52); AST 17 U/L (14-36); Albumin 3.8 g/dL (3.5-5.0); Alkaline Phosphatase 50 U/L (38-126); Anion Gap 9 mmol/L; Blood Urea Nitrogen 13 mg/dL (7-17); Calcium 9.3 mg/dL (8.4-10.2); Carbon Dioxide 23 mmol/L (22-30); Chloride 104 mmol/L (98-107); Glucose 319 mg/dL (74-99); Magnesium 1.3 mg/dL (1.6-2.3); Potassium 4.5 mmol/L (3.5-5.1); Sodium 136 mmol/L (137-145); Total Bilirubin 0.4 mg/dL (0.2-1.3); Total Protein 6.7 g/dL (6.3-8.2)
[2018-08-04 07:24] LABS: Creatine Kinase 49 U/L (30-135)
[2018-08-04 07:37] LABS: Creatine Kinase MB 0.6 ng/mL (0.0-2.4)
[2018-08-04 07:38] LABS: Troponin I <0.012 ng/mL (0.000-0.034)
[2018-08-04 07:44] VITALS: RESP 18
--- NOTE | 2018-08-04 08:32 | CT ---
EXAMINATION TYPE: CT brain wo con DATE OF EXAM: 08/04/2018 COMPARISON: None INDICATION: KALPESH, Dizziness DLP: 1115.4 mGycm, Automated exposure control for dose reduction was used. CONTRAST: None CT of the brain is performed utilizing 3 mm thick sections through the posterior fossa and 3 mm thick sections through the remaining calvarium. Study is performed within 24 hours of arrival to the hosp ital. No abnormal hyperdensity is present to suggest an acute intracranial hemorrhage. No mass lesion is evident. No acute infarcts are evident. Ventricles and sulci are appropriate for the patient age. There is an air-fluid level within the right maxillary sinus. Correlate for acute right maxillary sin usitis. Sella appears prominent. IMPRESSIONS: 1. No acute intracranial process. 2. Clinical correlation recommended for acute right maxillary sinusitis. Differential could include a large retention cyst.
[2018-08-04] MEDS ORDERED: NITROGLYCERIN SL TABS 0.4 MG TAB SUBLINGUAL PRN (09:29)
[2018-08-04] MEDS ORDERED: AMPICILLIN-SULBACTAM 3 GM in SODIUM CHLORIDE 0.9% 100 ML IVPB STA (09:30)
[2018-08-04] MEDS ORDERED: MECLIZINE 25 MG TAB PO PRN (09:30)
[2018-08-04] MEDS ORDERED: FAMOTIDINE 20 MG TAB PO PRN (11:53)
[2018-08-04] MEDS ORDERED: IBUPROFEN 800 MG TAB PO PRN (11:53)
[2018-08-04] MEDS ORDERED: Magnesium Replacement Protocol 1 EACH MISC MISCELLANE PRN (11:55)
[2018-08-04 13:07] LABS: Creatine Kinase 40 U/L (30-135)
[2018-08-04 13:20] LABS: Creatine Kinase MB 0.4 ng/mL (0.0-2.4); Troponin I <0.012 ng/mL (0.000-0.034)
[2018-08-04] MEDS: MAGNESIUM SULFATE-D5W PMX 1 GM in DEXTROSE/WATER 1 100ML.BAG IVPB SCH ×3 (13:25→15:25)
[2018-08-04] MEDS: NITROGLYCERIN OINT 1 INCH/GM PACKET TOPICAL SCH ×2 (13:39→17:58)
[2018-08-04] MEDS: INSULIN ASPART 100 UNIT/ML 1 ML 10 ML VIAL SQ SCH ×2 (13:39→13:47)
[2018-08-04 13:55] LABS: Glucose,Whole Blood 389 mg/dL (75-99)
[2018-08-04] MEDS ORDERED: NICOTINE 14MG/24HR PATCH TRANSDERM STA (14:19)
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
[2018-08-04] MEDS ORDERED: AMPICILLIN-SULBACTAM 3 GM in SODIUM CHLORIDE 0.9% 100 ML IVPB SCH (16:00)
[2018-08-04 17:04] LABS: Glucose,Whole Blood 318 mg/dL (75-99)
[2018-08-04 19:31] LABS: Creatine Kinase 42 U/L (30-135)
[2018-08-04 19:45] LABS: Creatine Kinase MB 0.3 ng/mL (0.0-2.4); Troponin I <0.012 ng/mL (0.000-0.034)
[2018-08-04 20:11] VITALS: BP 111/66; PULSE 72; TEMP 98
[2018-08-04 21:30] LABS: Glucose,Whole Blood 180 mg/dL (75-99)
[2018-08-05 04:11] LABS: Hemoglobin A1C 12.1 % (4.0-6.0)
[2018-08-05] MEDS ORDERED: glipiZIDE 5 MG TAB PO SCH (07:30)
[2018-08-05] MEDS ORDERED: CHOLECALCIFEROL 1,000 UNIT TAB PO SCH (09:00)
[2018-08-05] MEDS ORDERED: ASPIRIN 325 MG TAB PO SCH ×2 (09:00)
[2018-08-05] MEDS ORDERED: CYANOCOBALAMIN 500 MCG TAB PO SCH (09:00)
[2018-08-05] MEDS ORDERED: ASCORBIC ACID 500 MG TAB PO SCH (09:00)
[2018-08-05] MEDS ORDERED: SERTRALINE 50 MG TAB PO SCH (09:00)
[2018-08-05] MEDS ORDERED: NICOTINE 14MG/24HR PATCH TRANSDERM SCH (09:00)
--- NOTE | 2018-08-11 09:46 | P.DS ---
Providers Date of admission: 08/04/18 09:30 Expected date of discharge: 08/04/18 Attending physician: Tim Stark Consults: 08/04/18 09:29 Consult Physician Urgent Consulting Provider: [facility] Consult Reason/Comments: Chest pain Do you want consulting provider notified?: Yes Primary care physician: Tila Viera [place] [facility] Course: Discharge diagnosis Patient left AGAINST MEDICAL ADVICE 1. Dizziness with Chest pain. Troponins negative. Chest x-ray completed showing no cardiomegaly. No change. EKG completed showing normal sinus rhythm. EKG completed showing no acute intracranial process. Clinical correlation recommended for acute right maxillary sinusitis. Differential could include a large retention cyst. Cardiology services have been consulted 2. Acute sinusitis. CT scan of head showing acute right maxillary sinusitis. Differential could include a large retention cyst. Patient started on ampicillin. 3. Diabetes mellitus. Home glipizide resumed. Blood sugars remain elevated in 300s. Sliding scale insulin added. Will order A1c 4. Nicotine dependence. Patient educated greater than 3 minutes on smoking sensation. Nicotine patch has been ordered. 5. History of asthma 6. History of GERD 7. History of tuberculosis patient states she had treated about 2 years ago 8. Hypomagnesemia. Magnesium and replace per protocol will recheck in a.m. Hospital course This is a 57-year-old female patient of Dr. Viera. Patient states she woke up this morning feeling very dizzy and lightheaded. Patient states she lay down and at that time she experienced chest pressure and shortness of breath. Patient does have a known past medical history of asthma, diabetes mellitus, GERD, tuberculosis in which she received treatment for approximately 2 years ago , anxiety . Patient also smokes approximately 1 pack cigarettes per day. Patient does reports she has a significant family history for myocardial infections. Patient states her parents had cardiac conditions. Chest x-ray completed showing no cardiopulmonary disease. No change. Head CT completed showing no acute intracranial process. Clinical coloration recommended for acute right maxillary sinusitis. Differential could include a large right retention cyst. EKG showing normal sinus rhythm. Troponins negative. Patient started on Unasyn for maxillary sinusitis. Cardiology services consulted. At this time patient denies nausea vomiting or diarrhea. Patient is still complaining of some chest pressure with shortness of breath. Patient denies any urinary burning or frequency Patient left AGAINST MEDICAL ADVICE. Patient advised that further workup was necessary in regards to her chest pain and dizziness. Recommend close follow- up with PCP I performed an examination of the patient and discussed their management with the Nurse Practitioner. I have reviewed the Nurse Practitioner's notes and agree with the documented findings and plan of care Plan - Discharge Summary Discharge Rx Participant: No New Discharge Prescriptions: No Action Aspirin 325 mg PO DAILY Cyanocobalamin [Vitamin B-12] 500 mcg PO DAILY Cholecalciferol [Vitamin D3] 5,000 unit PO DAILY Ascorbic Acid [Vitamin C] 500 mg PO DAILY Ranitidine HCl [Zantac] 150 mg PO DAILY PRN PRN Reason: Heartburn glipiZIDE [Glucotrol] 5 mg PO AC-BRKFST Sertraline [Zoloft] 50 mg PO DAILY Ibuprofen [Motrin] 1,600 mg PO TID PRN PRN Reason: Pain Aspirin/Acetaminophen/Caffeine [Excedrin Migraine Caplet] 4 tab PO DAILY PRN PRN Reason: Migraine Headache Discharge Medication List Aspirin 325 mg PO DAILY 07/08/17 [History] Ascorbic Acid [Vitamin C] 500 mg PO DAILY 01/22/18 [History] Cholecalciferol [Vitamin D3] 5,000 unit PO DAILY 01/22/18 [History] Cyanocobalamin [Vitamin B-12] 500 mcg PO DAILY 01/22/18 [History] Aspirin/Acetaminophen/Caffeine [Excedrin Migraine Caplet] 4 tab PO DAILY PRN [History] Ibuprofen [Motrin] 1,600 mg PO TID PRN 08/04/18 [History] Ranitidine HCl [Zantac] 150 mg PO DAILY PRN 08/04/18 [History] Sertraline [Zoloft] 50 mg PO DAILY 08/04/18 [History] glipiZIDE [Glucotrol] 5 mg PO AC-BRKFST 08/04/18 [History] Follow up Appointment(s)/Referral(s): Tila Viera MD [Primary Care Provider] - 1-2 days Discharge Disposition: Left Against Medical Advice
== END 2018-08-04 21:52 | disposition left against medical advice (07) ==
LOC: EC 06:24 → 1SOBS 09:30
PROVIDERS: ADMIT Internal Medicine; ATTEND Internal Medicine
DX: R07.89 Other chest pain (principal); E83.42 Hypomagnesemia; R42 Dizziness and giddiness; J45.909 Unspecified asthma, uncomplicated; G47.33 Obstructive sleep apnea (adult) (pediatric); E11.42 Type 2 diabetes mellitus with diabetic polyneuropathy; F41.9 Anxiety disorder, unspecified; K21.9 Gastro-esophageal reflux disease without esophagitis; F17.210 Nicotine dependence, cigarettes, uncomplicated; G43.909 Migraine, unspecified, not intractable, without status migrainosus; K57.90 Diverticulosis of intestine, part unspecified, without perforation or abscess without bleeding; E66.9 Obesity, unspecified; Z68.39 Body mass index [BMI] 39.0-39.9, adult; Z79.82 Long term (current) use of aspirin; Z79.84 Long term (current) use of oral hypoglycemic drugs; Z79.899 Other long term (current) drug therapy; Z86.11 Personal history of tuberculosis; Z90.49 Acquired absence of other specified parts of digestive tract; Z87.440 Personal history of urinary (tract) infections; Z99.89 Dependence on other enabling machines and devices; Z98.51 Tubal ligation status; Z80.8 Family history of malignant neoplasm of other organs or systems; Z82.49 Family history of ischemic heart disease and other diseases of the circulatory system; Z83.3 Family history of diabetes mellitus; Z80.49 Family history of malignant neoplasm of other genital organs; Z83.49 Family history of other endocrine, nutritional and metabolic diseases
CPT/HCPCS: 96365; 96367; 99285; 36415; 93005; 80053; 82550; 82553; 82009; 83735; 84484; 85025; 85610; 85730; 83036; 71046; 70450; G0378; S4990; J3475; J0295

== ENCOUNTER → 2019-01-27 | Outpatient (CLI) | payer OTHER ==
--- NOTE | 2019-01-27 15:26 | BD ---
EXAMINATION TYPE: Axial Bone Density DATE OF EXAM: 01/27/2019 COMPARISON: NONE CLINICAL HISTORY: Postmenopausal female Height: 64.25 Weight: 230 FRAX RISK QUESTIONS: Alcohol (3 or more units per day): no Family History (Parent hip fracture): no Glucocorticoids (More than 3mos): no (Ex: prednisone, prednisolone, methylprednisolone, dexamethasone, and hydrocortisone). History of Fracture in Adulthood: nose Secondary Osteoporosis: 1. Type 1 Diabetes: no 2. Hyperthyroidism: no 3. Menopause before 45: no 4. Malnutrition: no 5. Chronic liver disease: no Rheumatoid Arthritis: no Current Tobacco Use: yes RISK FACTORS HISTORY OF: Family History of Osteoporosis: not to knowledge of patient Active: yes Diet low in dairy products/other sources of calcium: no Postmenopausal woman: yes Take estrogen and/or progesterone medications: no Lost more than 2 inches in height since high school: no Frequent falls: no Poor Health: no Hyperparathyroidism: no Adrenal Insufficiency: no MEDICATIONS: Prednisone or other steroids: steroid dose pack-short term Thyroid Medications: no Osteoporosis Meds: no Additional Medications: diabetes meds ...currently taking steroid dose pack for short time Additional History: type 2 diabetic; dormant TB (was treated) EXAM MEASUREMENTS: Bone mineral densitometry was performed using the [employer]. Bone mineral density as measured about the Lumbar spine is: ----- L1-L4(G/cm2): 1.410 T Score Values are as follows: ----- L2: 2.4 ----- L3: 1.7 ----- L4: 0.7 ----- L1-L4: 1.9 Bone mineral density BASELINE Bone mineral density about the R hip (g/cm2): 1.201 Bone mineral density about the L hip (g/cm2): 1.223 T Score values are as follows: -----R Neck: 1.2 -----L Neck: 1.3 -----R Total: 2.1 -----L Total: 2.2 Bone mineral density BASELINE IMPRESSION: Normal (Values between +1 and -1 indicate normal bone mass). Consider repeating this study in 5 year s or sooner if there is some new clinical indication. NOTE: T-SCORE=SD OF THE YOUNG ADULT MEAN.
--- NOTE | 2019-01-28 09:59 | MM ---
Reason for exam: screening (asymptomatic). Last mammogram was performed 1 year and 3 months ago. History: Patient is postmenopausal. Physical Findings: A clinical breast exam by your physician is recommended on an annual basis and results should be correlated with mammographic findings. MG Screening Mammo w CAD Bilateral CC and MLO view(s) were taken. Prior study comparison: October 15, 2017, bilateral MG screening mammo w CAD. There are scattered fibroglandular densities. No significant changes when compared with prior studies. ASSESSMENT: Benign, BI-RAD 2 RECOMMENDATION: Routine screening mammogram of both breasts in 1 year.
== END | disposition home or self-care (01) ==
LOC: RADMAMWWP 11:42
PROVIDERS: ATTEND Family Medicine
DX: Z12.31 Encounter for screening mammogram for malignant neoplasm of breast (principal); Z78.0 Asymptomatic menopausal state
CPT/HCPCS: 77067; 77080

== ENCOUNTER 2020-03-07 15:46 | Emergency (ER) | payer OTHER ==
[2020-03-07] MEDS ORDERED: MORPHINE SULFATE 2 MG/ML SYRINGE IM STA (17:20)
--- NOTE | 2020-03-07 17:29 | CT ---
EXAMINATION TYPE: CT brain cspine wo con DATE OF EXAM: 03/07/2020 COMPARISON: CT brain August 04, 2018 HISTORY: Fall today. Head and neck pain. CT DLP: 1543.1 mGycm. Automated Exposure Control for Dose Reduction was Utilized. TECHNIQUE: CT scan of the head and cervical spine are performed without contrast. FINDINGS: There is no acute intracranial hemorrhage or midline shift identified. Mild ventricular a nd sulcal prominence. Walton-white matter differentiation fairly well maintained. There is mucous reten tion cyst or polyp filling posterior right maxillary sinus partially imaged similar to prior. Remaind er paranasal sinuses are clear. Globes are intact bilaterally. The calvarium is intact. Cervical spine is visualized in its entirety from C1 through upper thoracic levels and demonstrates s traightened alignment without evidence of acute fracture or dislocation. Prevertebral soft tissue ap pears within normal limits. The C1-C2 articulation is within normal limits on the coronal images. Ve rtebral body heights are maintained. Mild to moderate disc space narrowing with moderate to severe an terior spurring at C6-C7 level. Spinal canal grossly preserved. Review of axial images shows right-si ded uncovertebral facet degenerative changes C2-C3 level causing [id number] right-sided neural foraminal narrowing. Spur disc complex effaces the anterior thecal sac at C6-C7 level on axial image 87. Thyroid gland felt within normal limits. Lung apices show no pneumothorax. IMPRESSION: 1. There is no acute fracture or dislocation evident in the cervical spine. 2. No acute intracranial hemorrhage or midline shift is seen.
--- NOTE | 2020-03-07 18:27 | XR ---
EXAMINATION TYPE: XR Hip LT and AP Pelvis, XR femur LT, XR tibia fibula LT, XR knee complete LT DATE OF EXAM: 03/07/2020 COMPARISON: NONE HISTORY: Fall injury with pelvic, left hip, left femur, left knee, and left leg pain. TECHNIQUE: A single AP view of the pelvis is obtained. Two views of the left hip, femur, and leg are obtained. 3 views left knee. FINDINGS: There is no acute fracture/dislocation evident in the pelvis. The sacroiliac joints appea r symmetric and unremarkable. Mild axial joint space loss and mild to moderate acetabular spurring of both hips. Pubic symphysis is intact. The overlying soft tissue appears unremarkable. Two views of left hip show no acute fracture or dislocation. No focal lytic or sclerotic lesion seen in the proximal left femur. The overlying soft tissue is unremarkable. Images of the left femur show no acute fracture or dislocation. Overlying soft tissue is unremarkable . Images of left knee show no acute fracture or dislocation. Moderate narrowing and spurring patellofem oral compartment. Large anterior superior and anterior inferior spurs. Moderate to severe narrowing a nd spurring medial tibial femoral compartment. Tibial condylar osteophytes. Suprapatellar loose body. Images of the left leg show no acute displaced fracture. Some demineralization is present. Overlying soft tissue is unremarkable. IMPRESSION: There is no acute fracture or dislocation in the pelvis or left hip, femur, knee, or leg .
--- NOTE | 2020-03-07 18:28 | XR ---
EXAMINATION TYPE: XR foot complete LT DATE OF EXAM: 03/07/2020 CLINICAL HISTORY: Pain after fall injury. TECHNIQUE: Frontal, lateral, and oblique images of the left foot are obtained. COMPARISON: None FINDINGS: There is no acute fracture/dislocation evident in the left foot. Moderate to large size rodriguez perior and inferior calcaneal spurs. Flexion or hammertoe type deformity of second through fifth toes . Some ossification at base of fifth metatarsal could reflect a calcific tendinitis of the peroneal t endon. The joint spaces in the left foot appear within normal limits. The overlying soft tissue kristina ears unremarkable. IMPRESSION: There is no acute fracture or dislocation in the left foot.
--- NOTE | 2020-03-07 18:30 | XR ---
EXAMINATION TYPE: XR lumbar spine 2 or 3V DATE OF EXAM: 03/07/2020 CLINICAL HISTORY: Pain after fall injury. TECHNIQUE: Frontal, lateral, and oblique images of the lumbar spine are obtained. COMPARISON: None FINDINGS: There are 5 lumbar type vertebral bodies identified. Transitional type LVI vertebra. The l umbar spine shows satisfactory alignment without evidence of acute fracture or dislocation. Vertebral body heights and disk space heights are within normal limits. Mild multilevel lateral spurring. Chol ecystectomy clips are noted. Facet arthropathy lower lumbar levels. IMPRESSION: No acute fracture or dislocation is seen in the lumbar spine.
--- NOTE | 2020-03-07 18:31 | XR ---
EXAMINATION TYPE: XR thoracic spine complete DATE OF EXAM: 03/07/2020 CLINICAL HISTORY: Fall with mid back pain. TECHNIQUE: Frontal, lateral, and swimmer's view of thoracic spine are obtained. COMPARISON: None. FINDINGS: Thoracic spine show satisfactory alignment without evidence of acute fracture or dislocatio n. Vertebral body heights and disc space heights are preserved. Moderate multilevel anterior and lat eral spurring in the mid to lower thoracic spine. Visualized ribs are intact bilaterally. IMPRESSION: No acute fracture or dislocation is seen in the thoracic spine.
[2020-03-07 18:37] VITALS: RESP 16
--- NOTE | 2020-03-07 18:37 | XR ---
EXAMINATION TYPE: XR ribs LT w pa chest xray DATE OF EXAM: 03/07/2020 CLINICAL HISTORY: Chest and left-sided rib pain after fall injury. TECHNIQUE: Single frontal view of the chest is obtained. A frontal and oblique images left-sided ribs . COMPARISON: Chest x-ray August 04, 2018 FINDINGS: There is no focal air space opacity, pleural effusion, or pneumothorax seen. The cardiac silhouette size is stable and upper limits of normal. The osseous structures are somewhat demineral ized. Dedicated images of left-sided ribs show no acute displaced fracture. Overlying soft tissue is unrema rkable. IMPRESSION: 1. No acute cardiopulmonary process. 2. No acute displaced left-sided rib fractures.
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
[2020-03-07 20:18] VITALS: BP 124/84; PULSE 93; TEMP 98.8
== END 2020-03-07 20:18 | disposition home or self-care (01) ==
LOC: EC 15:46
DX: S06.891A Other specified intracranial injury with loss of consciousness of 30 minutes or less, initial encounter (principal); R55 Syncope and collapse; R07.81 Pleurodynia; M79.605 Pain in left leg; J45.909 Unspecified asthma, uncomplicated; E11.40 Type 2 diabetes mellitus with diabetic neuropathy, unspecified; G47.33 Obstructive sleep apnea (adult) (pediatric); F41.9 Anxiety disorder, unspecified; F32.9 Major depressive disorder, single episode, unspecified; F17.200 Nicotine dependence, unspecified, uncomplicated; Z79.84 Long term (current) use of oral hypoglycemic drugs; Z79.899 Other long term (current) drug therapy; W18.09XA Striking against other object with subsequent fall, initial encounter; Y92.69 Other specified industrial and construction area as the place of occurrence of the external cause; Y99.0 Civilian activity done for income or pay
CPT/HCPCS: 99284; 96372; 71101; 72072; 72100; 73502; 73552; 73590; 73562; 73630; 72125; 70450; J2270

== ENCOUNTER 2020-03-08 16:30 | Emergency (ER) | payer OTHER ==
[2020-03-08 16:38] VITALS: RESP 18; TEMP 98.2
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
[2020-03-08 17:40] LABS: Basophils % (A) 0 %; Eosinophils # (A) 0.1 k/uL (0-0.7); Eosinophils % (A) 2 %; HCT 35.8 % (34.0-46.0); HGB 12.4 gm/dL (11.4-16.0); Lymphocytes % (A) 30 %; MCH 28.1 pg (25.0-35.0); MCHC 34.6 g/dL (31.0-37.0); MCV 81.3 fL (80.0-100.0); Mean Platelet Volume 7.8; Monocytes # (A) 0.4 k/uL (0-1.0); Monocytes % (A) 6 %; Neutrophils % (A) 60 %; Platelet Count 183 k/uL (150-450); RDW 14.1 % (11.5-15.5); WBC 6.7 k/uL (3.8-10.6)
[2020-03-08 17:49] LABS: ALT 26 U/L (4-34); AST 26 U/L (14-36); African American GFR (CKD) >90 (>60 ml/min/1.73 sqM); Albumin 4.3 g/dL (3.5-5.0); Alkaline Phosphatase 47 U/L (38-126); Anion Gap 8 mmol/L; Blood Urea Nitrogen 17 mg/dL (7-17); Carbon Dioxide 25 mmol/L (22-30); Chloride 102 mmol/L (98-107); Glucose 194 mg/dL (74-99); Non-African American GFR(CKD) >90 (>60 ml/min/1.73 sqM); Potassium 4.6 mmol/L (3.5-5.1); Sodium 135 mmol/L (137-145); Total Bilirubin 0.3 mg/dL (0.2-1.3); Total Protein 7.2 g/dL (6.3-8.2)
--- NOTE | 2020-03-08 18:41 | CT ---
EXAMINATION TYPE: CT ChestAbdPelvis w con DATE OF EXAM: 03/08/2020 COMPARISON: None HISTORY: Fall, left sided abdominal pain. CT DLP: 2639.7 mGycm Automated exposure control for dose reduction was used. CONTRAST: Performed with IV Contrast, patient injected with 100ml mL of Isovue 300. Images were obtained from the thoracic inlet to the floor the pelvis with IV contrast. The lungs are clear of infiltrate. There is no pleural effusion or pneumothorax. There is no evidence of a pulmonary mass. Heart size is normal. There is no pericardial effusion. There is no mediastinal adenopathy. There are no hilar masses. There is fatty infiltration of the liver. There are clips from cholecystectomy. Spleen is intact. The re is no pancreatic mass. Stomach is intact. There is no adrenal mass. Kidneys show satisfactory contrast opacification. There is no hydronephrosi s. Delayed images show normal renal excretion. There is no retroperitoneal adenopathy. Bladder disten ds smoothly. There is no inguinal hernia. There are numerous diverticula in the sigmoid colon. I see no sign of diverticulitis. Appendix is not seen with certainty. There is no sign of thickened appendi x. There is no mesenteric edema. There is no ascites or free air. There is no bowel obstruction. The thoracic and lumbar vertebra have normal alignment. There is no compression fracture. Sternum is intact. The bony pelvis appears intact. Hip joints appear normal. The ribs appear intact. Shoulder dunia ints are partly visualized and appear intact. IMPRESSION: I see no sign of acute traumatic injury of the chest abdomen pelvis. Fatty infiltration of the liver. Atherosclerotic vascular disease. Sigmoid diverticulosis.
--- NOTE | 2020-03-08 18:44 | XR ---
EXAMINATION TYPE: XR shoulder complete LT DATE OF EXAM: 03/08/2020 COMPARISON: NONE HISTORY: Shoulder pain TECHNIQUE: 3 views FINDINGS: I see no fracture nor dislocation. Joint spaces are normal. There is some spurring at the A C joint. IMPRESSION: Arthritic changes at the AC joint. No fracture seen.
[2020-03-08 18:54] VITALS: BP 115/77; PULSE 87
[2020-03-08 19:03] LABS: Appearance,Urine Clear (Clear); Bilirubin,Urine Negative (Negative); Blood,Urine Negative (Negative); Color,Urine Yellow; Glucose,Urine (UA) Negative (Negative); Ketones,Urine Negative (Negative); Leukocyte Esterase,Urine Negative (Negative); Nitrite,Urine Negative (Negative); PH, Urine 5.5 (5.0-8.0); Protein,Urine Negative (Negative); Urobilinogen,Urine <2.0 mg/dL (<2.0)
[2020-03-08 19:20] LABS: Specific Gravity,Urine 1.048 (1.001-1.035)
== END 2020-03-08 19:27 | disposition home or self-care (01) ==
LOC: EC 16:30
DX: R10.12 Left upper quadrant pain (principal); R10.32 Left lower quadrant pain; J45.909 Unspecified asthma, uncomplicated; G43.909 Migraine, unspecified, not intractable, without status migrainosus; E11.9 Type 2 diabetes mellitus without complications; K21.9 Gastro-esophageal reflux disease without esophagitis; F17.200 Nicotine dependence, unspecified, uncomplicated; Z79.82 Long term (current) use of aspirin; Z79.52 Long term (current) use of systemic steroids; Z79.899 Other long term (current) drug therapy; Z90.89 Acquired absence of other organs; Z90.49 Acquired absence of other specified parts of digestive tract; Z98.51 Tubal ligation status
CPT/HCPCS: 36415; 93005; 80053; 83690; 85025; 81003; 73030; 71260; 74177; 99284; Q9967

== ENCOUNTER 2022-08-10 16:38 | Inpatient (IN) | payer OTHER ==
[2022-08-10 16:43] LABS: Glucose,Whole Blood 283 mg/dL (70-110)
[2022-08-10] MEDS ORDERED: MORPHINE SULFATE 4 MG/ML SYRINGE IVP STA (16:57)
[2022-08-10] MEDS ORDERED: PIPERACILLIN-TAZOBACTAM 3.375 GM in SODIUM CHLORIDE 0.9% 100 ML IVPB STA (16:58)
[2022-08-10] MEDS ORDERED: VANCOMYCIN IV PER PHARMACY 1 EACH MISC MISCELLANE PRN (16:59)
[2022-08-10] MEDS ORDERED: VANCOMYCIN 1,500 MG in SODIUM CHLORIDE 0.9% 500 ML 500 ML IVPB STA (17:02)
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
[2022-08-10 18:14] LABS: Basophils % (A) 1 %; Eosinophils # (A) 0.1 k/uL (0-0.7); Eosinophils % (A) 1 %; HCT 29.8 % (34.0-46.0); HGB 10.9 gm/dL (11.4-16.0); Lymphocytes # (A) 1.3 k/uL (1.0-4.8); Lymphocytes % (A) 21 %; MCH 28.8 pg (25.0-35.0); MCHC 36.4 g/dL (31.0-37.0); MCV 79.2 fL (80.0-100.0); Mean Platelet Volume 8.7; Monocytes # (A) 0.5 k/uL (0-1.0); Monocytes % (A) 8 %; Neutrophils % (A) 67 %; Platelet Count 173 k/uL (150-450); RBC 3.77 m/uL (3.80-5.40); RDW 13.3 % (11.5-15.5)
[2022-08-10 18:26] LABS: ALT 12 U/L (4-34); AST 16 U/L (14-36); African American GFR (CKD) >90 (>60 ml/min/1.73 sqM); Albumin 3.8 g/dL (3.5-5.0); Alkaline Phosphatase 48 U/L (38-126); Anion Gap 5 mmol/L; Blood Urea Nitrogen 21 mg/dL (7-17); Calcium 9.3 mg/dL (8.4-10.2); Carbon Dioxide 25 mmol/L (22-30); Chloride 104 mmol/L (98-107); Glucose 227 mg/dL (74-99); Non-African American GFR(CKD) 81 (>60 ml/min/1.73 sqM); Potassium 5.5 mmol/L (3.5-5.1); Sodium 134 mmol/L (137-145); Total Bilirubin 0.4 mg/dL (0.2-1.3); Total Protein 6.2 g/dL (6.3-8.2)
--- NOTE | 2022-08-10 18:39 | XR ---
EXAMINATION TYPE: XR foot complete LT DATE OF EXAM: 08/10/2022 COMPARISON: 03/07/2020 HISTORY: Pain TECHNIQUE: 3 views FINDINGS: There is plantar and Achilles calcaneal spurring. Metatarsals are intact. The toes are inta ct. No evidence of a fracture. IMPRESSION: Calcaneal spurring. No fracture seen. No change.
--- NOTE | 2022-08-10 18:41 | XR ---
EXAMINATION TYPE: XR toes LT DATE OF EXAM: 08/10/2022 COMPARISON: NONE HISTORY: Infection TECHNIQUE: 3 view FINDINGS: There is some soft tissue swelling around the big toe. No fracture seen. No focal bone dest ruction. IMPRESSION: Soft tissue swelling. No fracture or bone destruction.
[2022-08-10] MEDS ORDERED: ALBUTEROL NEB (CONC) 2.5 MG/0.5 ML INHALATION ONE (18:44)
[2022-08-10] MEDS ORDERED: INSULIN REGULAR 100 UNIT/ML VIAL (IV) IV ONE (18:44)
[2022-08-10] MEDS ORDERED: DEXTROSE 50% SYRINGE 50 ML IVP ONE (18:44)
[2022-08-10] MEDS ORDERED: SODIUM CHLORIDE 0.9% 1,000 ML IV ONE (18:46)
[2022-08-10] MEDS ORDERED: NALOXONE 0.4 MG/ML 1 ML VIAL IV PRN (18:59)
[2022-08-10] MEDS: MORPHINE SULFATE 4 MG/ML SYRINGE IV PRN (20:01)
[2022-08-10] MEDS: HYDROcodone/APAP 5-325MG 1 EACH TAB PO PRN (21:12)
[2022-08-10 21:13] LABS: Glucose,Whole Blood 236 mg/dL (70-110)
[2022-08-10 22:20] LABS: Glucose,Whole Blood 250 mg/dL (70-110)
[2022-08-10] MEDS: SODIUM CHLORIDE 0.9% 1,000 ML IV SCH (23:32)
[2022-08-11 01:30] LABS: Glucose,Whole Blood 345 mg/dL (70-110)
[2022-08-11] MEDS ORDERED: DEXTROSE 50% SYRINGE 50 ML IVP PRN ×2 (05:59)
[2022-08-11 06:16] LABS: Glucose,Whole Blood 266 mg/dL (70-110)
[2022-08-11] MEDS: INSULIN ASPART (NovoLOG) 100 UNIT/ML VIAL SQ SCH ×4 (07:29→20:29)
[2022-08-11] MEDS: MORPHINE SULFATE 4 MG/ML SYRINGE IV PRN ×3 (07:43→17:50)
[2022-08-11] MEDS: SODIUM CHLORIDE 0.9% 1,000 ML IV SCH ×2 (07:45→22:52)
[2022-08-11] MEDS: HYDROcodone/APAP 5-325MG 1 EACH TAB PO PRN ×3 (09:38→23:15)
[2022-08-11] MEDS: VANCOMYCIN 1,500 MG in SODIUM CHLORIDE 0.9% 500 ML 500 ML IVPB SCH (11:15)
[2022-08-11 12:41] LABS: Glucose,Whole Blood 275 mg/dL (70-110)
[2022-08-11 17:52] LABS: Glucose,Whole Blood 163 mg/dL (70-110)
[2022-08-11] MEDS: INSULIN DETEMIR (LEVEMIR) 100 UNIT/ML SYR SQ SCH (18:23)
[2022-08-11] MEDS ORDERED: ERGOCALCIFEROL 1,250 MCG (50,000 IU) CAPSULE PO SCH (18:30)
[2022-08-11] MEDS: PANTOPRAZOLE 40 MG/10 ML VIAL IVP SCH (18:30)
[2022-08-11 20:27] LABS: Glucose,Whole Blood 286 mg/dL (70-110)
[2022-08-11] MEDS: MAGNESIUM OXIDE 400 MG TAB PO SCH (20:30)
[2022-08-11] MEDS: DOCUSATE 100 MG CAP PO SCH (20:30)
[2022-08-11] MEDS: SENNOSIDES 8.6 MG TAB PO SCH (20:30)
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
[2022-08-12] MEDS: VANCOMYCIN 1,500 MG in SODIUM CHLORIDE 0.9% 500 ML 500 ML IVPB SCH ×2 (02:17→13:58)
[2022-08-12] MEDS: INSULIN ASPART (NovoLOG) 100 UNIT/ML VIAL SQ SCH ×4 (05:43→21:27)
[2022-08-12] MEDS: INSULIN DETEMIR (LEVEMIR) 100 UNIT/ML SYR SQ SCH (05:43)
[2022-08-12 05:46] LABS: Glucose,Whole Blood 168 mg/dL (70-110)
[2022-08-12] MEDS: PANTOPRAZOLE 40 MG/10 ML VIAL IVP SCH (08:02)
[2022-08-12] MEDS: SODIUM CHLORIDE 0.9% 1,000 ML IV SCH ×2 (08:03→23:50)
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
[2022-08-12] MEDS: MULTIVITAMINS, THERA 1 EACH TAB PO SCH (09:01)
[2022-08-12 09:19] LABS: African American GFR (CKD) 125.1 (60.0-200.0); Anion Gap 8.5 mmol/L (10.00-18.00); BUN/Creat Ratio 19.52 Ratio (12.00-20.00); Calcium 8.6 mg/dL (8.7-10.3); Carbon Dioxide 21.7 mmol/L (20.0-27.5); Non-African American GFR(CKD) 107.9 (60.0-200.0); Potassium 4.3 mmol/L (3.5-5.5)
[2022-08-12 09:20] LABS: Glucose,Whole Blood 245 mg/dL (70-110)
[2022-08-12] MEDS: MORPHINE SULFATE 4 MG/ML SYRINGE IV PRN ×2 (09:24→15:54)
[2022-08-12] MEDS ORDERED: INSULIN DETEMIR (LEVEMIR) 100 UNIT/ML SYR SQ ONE (09:30)
[2022-08-12 12:34] LABS: Glucose,Whole Blood 280 mg/dL (70-110)
[2022-08-12 17:04] LABS: Glucose,Whole Blood 161 mg/dL (70-110)
[2022-08-12 20:07] LABS: Glucose,Whole Blood 211 mg/dL (70-110)
[2022-08-12] MEDS: SENNOSIDES 8.6 MG TAB PO SCH (21:27)
[2022-08-12] MEDS: MAGNESIUM OXIDE 400 MG TAB PO SCH (21:27)
[2022-08-12] MEDS: DOCUSATE 100 MG CAP PO SCH (21:27)
[2022-08-12] MEDS: HYDROcodone/APAP 5-325MG 1 EACH TAB PO PRN (21:33)
[2022-08-13] MEDS: VANCOMYCIN 1,500 MG in SODIUM CHLORIDE 0.9% 500 ML 500 ML IVPB SCH ×2 (01:09→15:43)
[2022-08-13 06:02] LABS: Glucose,Whole Blood 310 mg/dL (70-110)
--- NOTE | 2022-08-13 06:13 | P.PN ---
Subjective Progress Note Date: 08/12/22 Principal diagnosis: Left big toe diabetic foot infection Patient is a 69-year-old female presenting to the hospital with a left big toe pain Swelling or redness have infected callus status post cultures. On today's evaluation that is 08/12/2022, the patient denies having any fever or any chills patient is still some swelling of swelling to the left foot and pain and no further drainage denies any chest pain shortness of breath or cough no abdominal pain or diarrhea Objective - Vital Signs Vital signs: Vital Signs Temp 98.8 F 08/12/22 19:23 Pulse 77 08/12/22 19:23 Resp 18 08/12/22 19:23 BP 146/67 08/12/22 19:23 Pulse Ox 97 08/12/22 19:23 FiO2 Intake & Output 08/12/22 08/12/22 08/13/22 06:59 18:59 06:59 Intake Total 1000 1320 Balance 1000 1320 Intake: Intake, IV Titration 500 Amount Vancomycin 1,500 mg In 500 Sodium Chloride 0.9% 500 ml 500 ml @ 167 mls/hr IVPB Q16H [facility] Rx#: [id number] Oral 500 1320 Other: Voiding Method Bedside Commode # Voids 1 # Bowel Movements 1 - Exam GENERAL DESCRIPTION: Middle-aged female lying in bed in no distress RESPIRATORY SYSTEM: Unlabored breathing , decreased breath sounds at bases HEART: S1 S2 regular rate and rhythm , ABDOMEN: Soft , no tenderness EXTREMITIES: Left foot did have some swelling redness has decreased no further drainage from the tip of the left big toe - Labs CBC & Chem 7: 08/10/22 18:06 08/12/22 05:45 Labs: Abnormal Lab Results - Last 24 Hours (Table) 08/12/22 08/12/22 08/12/22 Range/Units 05:41 05:45 09:19 Sodium 134 L (135-145) mmol/L Anion Gap 8.50 L (10.00-18.00) mmol/L Creatinine 0.5 L (0.6-1.5) mg/dL Glucose 156 H (70-110) mg/dL POC Glucose (mg/dL) 168 H 245 H (70-110) mg/dL Calcium 8.6 L (8.7-10.3) mg/dL 08/12/22 08/12/22 08/12/22 Range/Units 12:33 17:02 20:06 Sodium (135-145) mmol/L Anion Gap (10.00-18.00) mmol/L Creatinine (0.6-1.5) mg/dL Glucose (70-110) mg/dL POC Glucose (mg/dL) 280 H 161 H 211 H (70-110) mg/dL Calcium (8.7-10.3) mg/dL Microbiology - Last 24 Hours (Table) 08/10/22 18:06 Blood Culture - Preliminary Blood No Growth after 48 hours 08/11/22 11:30 Wound Culture - Preliminary Foot - Left 08/11/22 11:30 Anaerobic Culture - Preliminary Foot - Left Assessment and Plan (1) Cellulitis Current Visit: Yes Status: Acute Code(s): L03.90 - CELLULITIS, UNSPECIFIED SNOMED Code(s): 661130944 Plan: 1patient with left big toe diabetic foot infection in this patient with likely infected callus as I was able to express significant amount of purulent and bloodstained secretion with minimal pressure which has been sent for culture failing outpatient oral Bactrim DS therapy concerning for possible community associated MRSA. 2local wound culture both aerobic and anaerobic are currently pending. 3patient to continue with vancomycin pharmacy to dose target trough of 15 while watching kidney function and vancomycin trough closely. 4dry protective dressing to the area change daily. Time with Patient: Less than 30
[2022-08-13] MEDS: PANTOPRAZOLE 40 MG TABLET PO SCH (06:25)
[2022-08-13] MEDS: INSULIN DETEMIR (LEVEMIR) 100 UNIT/ML SYR SQ SCH (06:25)
[2022-08-13] MEDS: INSULIN ASPART (NovoLOG) 100 UNIT/ML VIAL SQ SCH ×6 (06:25→21:02)
[2022-08-13] MEDS: MULTIVITAMINS, THERA 1 EACH TAB PO SCH (08:20)
[2022-08-13 10:21] VITALS: BMI 29.3
--- NOTE | 2022-08-13 11:03 | P.PN ---
Subjective Progress Note Date: 08/12/22 H&P Date: 08/11/22 Chief Complaint: toe pain Tiffany Sommers is a 61 yo F with PMH of T2DM, GERD who presented to the ED with increasing L great toe pain and redness. She states this started about a week ago and she went to [facility] ED and was diagnosed with cellulitis and started on bactrim. She did not note any improvement with this treatment and continued to experience pain, swelling, redness. She denies fever, chills, sweats, shortness of breath. Her pain worsened to the point it was constant and 9/10 so she came to the ED. ON presentation vitals stable, WBC 6k, lactic 1, Cr at baseline, XR with soft tissue swelling and no bony process. 08/12/2022 maintained on vancomycin, renal function stable. Afebrile. Evaluated by infectious disease ,expressed purulent secretions from the left great toe, cultured. Complains of nonradiating pain of left foot. Denies any chest pain, palpitations or shortness of breath. Positive diet intake, denies nausea vomiting or diarrhea. Levemir insulin added on yesterday to med regimen for hyperglycemia. Blood sugars improved this morning, down to 156. Objective - Vital Signs Vital signs: Vital Signs Temp 98.1 F 08/12/22 07:21 Pulse 78 08/12/22 07:21 Resp 16 08/12/22 07:21 BP 147/67 08/12/22 07:21 Pulse Ox 97 08/12/22 07:21 FiO2 Intake & Output 08/11/22 08/12/22 08/12/22 18:59 06:59 18:59 Intake Total 1000 480 Balance 1000 480 Intake: Intake, IV Titration 500 Amount Vancomycin 1,500 mg In 500 Sodium Chloride 0.9% 500 ml 500 ml @ 167 mls/hr IVPB Q16H [facility] Rx#: [id number] Oral 500 480 Other: Voiding Method Bedside Commode # Voids 4 1 # Bowel Movements 1 - Exam Gen: Sitting up at side of bed, NAD HEENT: NC/AT, mmm Neck: supple, no JVD CV: RRR, no murmur Lungs: normal effort, clear throughout Abd: soft, nontender, non distended Neuro: alert and oriented x3, no focal deficit Skin: L great toe callus dressing clean dry and intact, Surrounding erythema - Labs CBC & Chem 7: 08/10/22 18:06 08/12/22 05:45 Labs: Abnormal Lab Results - Last 24 Hours (Table) 08/10/22 08/11/22 08/11/22 Range/Units 18:06 17:50 20:25 Sodium (135-145) mmol/L Anion Gap (10.00-18.00) mmol/L Creatinine (0.6-1.5) mg/dL Glucose (70-110) mg/dL POC Glucose (mg/dL) 163 H 286 H (70-110) mg/dL Hemoglobin A1c 9.4 H (0.0-6.0) % Calcium (8.7-10.3) mg/dL 08/12/22 08/12/22 08/12/22 Range/Units 05:41 05:45 09:19 Sodium 134 L (135-145) mmol/L Anion Gap 8.50 L (10.00-18.00) mmol/L Creatinine 0.5 L (0.6-1.5) mg/dL Glucose 156 H (70-110) mg/dL POC Glucose (mg/dL) 168 H 245 H (70-110) mg/dL Hemoglobin A1c (0.0-6.0) % Calcium 8.6 L (8.7-10.3) mg/dL 08/12/22 Range/Units 12:33 Sodium (135-145) mmol/L Anion Gap (10.00-18.00) mmol/L Creatinine (0.6-1.5) mg/dL Glucose (70-110) mg/dL POC Glucose (mg/dL) 280 H (70-110) mg/dL Hemoglobin A1c (0.0-6.0) % Calcium (8.7-10.3) mg/dL Microbiology - Last 24 Hours (Table) 08/11/22 11:30 Wound Culture - Preliminary Foot - Left 08/11/22 11:30 Anaerobic Culture - Preliminary Foot - Left 08/10/22 18:06 Blood Culture - Preliminary Blood No Growth after 24 hours Assessment and Plan Assessment: Cellulitis of left great toe, concerning for MRSA, failed outpatient treatment with Bactrim, wound culture pending Diabetes mellitus type 2, hyperglycemic, hemoglobin A1c 9.4 Obesity, BMI 29.4 History of asthma, stable DAYRON Gastroesophageal reflux disease History of TB treated approximately 4 years ago History of diverticulosis Anxiety Depression Ongoing nicotine dependence, counseling provided Plan: Continue on current medication regime ,monitoring and symptomatic treatment. IV antibiotics as per ID. Wound cultures pending-close monitoring. Smoking cessation reinforced. Diabetic education provided; patient was declining Levemir insulin earlier this morning, re-educated and is now willing to comply with medical regimen. Plan of care discussed with patient including antibiotic therapy with further recommendations pending finalized wound cultures , arterial Doppler results pending, tight blood sugar control, increase ambul ation as tolerated and smoking cessation reinforced. The impression and plan of care has been dictated as directed. : I performed a history and examination of this patient, discussed the same with the dictator. I agree with the dictator's note ,documented as a scribe. Any additional findings or plans will be noted.
--- NOTE | 2022-08-13 11:21 | P.PN ---
Subjective Progress Note Date: 08/13/22 H&P Date: 08/11/22 Chief Complaint: toe pain Tiffany Sommers is a 61 yo F with PMH of T2DM, GERD who presented to the ED with increasing L great toe pain and redness. She states this started about a week ago and she went to [facility] ED and was diagnosed with cellulitis and started on bactrim. She did not note any improvement with this treatment and continued to experience pain, swelling, redness. She denies fever, chills, sweats, shortness of breath. Her pain worsened to the point it was constant and 9/10 so she came to the ED. ON presentation vitals stable, WBC 6k, lactic 1, Cr at baseline, XR with soft tissue swelling and no bony process. 08/12/2022 maintained on vancomycin, renal function stable. Afebrile. Evaluated by infectious disease ,expressed purulent secretions from the left great toe, cultured. Complains of nonradiating pain of left foot. Denies any chest pain, palpitations or shortness of breath. Positive diet intake, denies nausea vomiting or diarrhea. Levemir insulin added on yesterday to med regimen for hyperglycemia. Blood sugars improved this morning, down to 156. 08/13/2022 Arterial Doppler results pending.Afebrile.Continues on IV antibiotics as per infectious disease. Wound cultures in progress. Preliminary blood cultures no growth after 48 hours. Blood sugars elevated. Left foot pain lessened. Denies chest pain, palpitations or shortness of breath. Objective - Vital Signs Vital signs: Vital Signs Temp 98.4 F 08/13/22 07:00 Pulse 74 08/13/22 08:00 Resp 18 08/13/22 08:00 BP 163/83 08/13/22 07:00 Pulse Ox 98 08/13/22 07:00 FiO2 Intake & Output 08/12/22 08/13/22 08/13/22 18:59 06:59 18:59 Intake Total 1320 240 Balance 1320 240 Weight 77.564 kg Intake: Oral 1320 240 Other: Voiding Method Bedside Commode Bedside Commode # Voids 1 3 # Bowel Movements 1 1 - Exam Gen: Sitting up at side of bed, NAD HEENT: NC/AT, mmm Neck: supple, no JVD CV: RRR, no murmur Lungs: normal effort, clear throughout Abd: soft, nontender, non distended Neuro: alert and oriented x3, no focal deficit Skin: L great toe callus dressing intact, minimal shadowing, Surrounding erythema Microbiology 08/11/22 11:30 Foot - Left Gram Stain - Preliminary 08/11/22 11:30 Foot - Left Wound Culture - Preliminary 08/10/22 18:06 Blood Blood Culture - Preliminary No Growth after 48 hours 08/11/22 11:30 Foot - Left Anaerobic Culture - Preliminary - Labs CBC & Chem 7: 08/10/22 18:06 08/12/22 05:45 Labs: Abnormal Lab Results - Last 24 Hours (Table) 08/12/22 08/12/22 08/12/22 Range/Units 12:33 17:02 20:06 POC Glucose (mg/dL) 280 H 161 H 211 H (70-110) mg/dL 08/13/22 Range/Units 05:59 POC Glucose (mg/dL) 310 H (70-110) mg/dL Microbiology - Last 24 Hours (Table) 08/11/22 11:30 Gram Stain - Preliminary Foot - Left Wound Culture - Preliminary 08/10/22 18:06 Blood Culture - Preliminary Blood No Growth after 48 hours 08/11/22 11:30 Anaerobic Culture - Preliminary Foot - Left Assessment and Plan Assessment: Cellulitis of left great toe, concerning for MRSA, failed outpatient treatment with Bactrim, wound culture pending Diabetes mellitus type 2, hyperglycemic, hemoglobin A1c 9.4 Obesity, BMI 29.4 History of asthma, stable [place] Gastroesophageal reflux disease History of TB treated approximately 4 years ago History of diverticulosis Anxiety Depression Ongoing nicotine dependence, counseling provided Plan: Continue on current medication regime ,monitoring and symptomatic tr eatment. Wound cultures in progress. IV antibiotics of vancomycin per pharmacy dosing, as per ID with close monitoring of renal function. Repeat labs ordered for a.m. Plan of care discussed with patient including arterial Doppler results pending , continuing on antibiotics as per infectious disease while awaiting final wound culture results , tighter blood sugar control, with med regimen further adjusted ,increase ambulation as tolerated. Nicotine patch added to med regimen. The impression and plan of care has been dictated as directed. : I performed a history and examination of this patient, discussed the same with the dictator. I agree with the dictator's note ,documented as a scribe. Any additional findings or plans will be noted.
[2022-08-13 12:08] LABS: Glucose,Whole Blood 406 mg/dL (70-110)
[2022-08-13] MEDS ORDERED: VANCOMYCIN TROUGH DUE 1 EACH MISC MISCELLANE ONE (13:00)
[2022-08-13] MEDS: NICOTINE 21MG/24HR PATCH TRANSDERM SCH (13:02)
--- NOTE | 2022-08-13 15:03 | US ---
EXAMINATION TYPE: US arterial LE multi level DATE OF EXAM: 08/11/2022 4:01 PM CLINICAL HISTORY: DM ulcer. DM ulcer. Left toe ulcer x 1 year. Current smoker, diabetes, pt states sh e gets rest pain in both legs. Right brachial was deferred due to IV. Doppler Waveforms: Right: Predominantly monophasic Left: Predominantly monophasic Ankle-Brachial Indices: Right: 0.53 Left: 0.52 Toe Brachial Indices: Right: 0.42 Left: 0.24 This exam was very limited diagnostically due to movement with cuff inflation. Unable to obtain press ure right thigh with movement. IMPRESSION: Suboptimal study with loss of phasicity and diminished REENA and TBI values bilaterally. A t least moderate peripheral arterial disease in the bilateral lower extremities and feet is present. Further workup and follow-up advised.
[2022-08-13] MEDS: SODIUM CHLORIDE 0.9% 1,000 ML IV SCH (15:44)
[2022-08-13 16:12] LABS: Glucose,Whole Blood 111 mg/dL (70-110)
[2022-08-13 18:14] LABS: Glucose,Whole Blood 261 mg/dL (70-110)
[2022-08-13] MEDS: HYDROcodone/APAP 5-325MG 1 EACH TAB PO PRN (20:11)
[2022-08-13] MEDS ORDERED: INSULIN DETEMIR (LEVEMIR) 100 UNIT/ML SYR SQ SCH (21:00)
[2022-08-13] MEDS: MAGNESIUM OXIDE 400 MG TAB PO SCH (21:33)
[2022-08-13] MEDS: DOCUSATE 100 MG CAP PO SCH (21:33)
[2022-08-13] MEDS: SENNOSIDES 8.6 MG TAB PO SCH (21:33)
[2022-08-13] MEDS: MORPHINE SULFATE 4 MG/ML SYRINGE IV PRN (21:37)
[2022-08-14] MEDS: SODIUM CHLORIDE 0.9% 1,000 ML IV SCH (02:07)
[2022-08-14] MEDS ORDERED: VANCOMYCIN 1,750 MG in SODIUM CHLORIDE 0.9% 500 ML 500 ML IVPB SCH (04:00)
[2022-08-14] MEDS: INSULIN DETEMIR (LEVEMIR) 100 UNIT/ML SYR SQ SCH (05:23)
[2022-08-14] MEDS: INSULIN ASPART (NovoLOG) 100 UNIT/ML VIAL SQ SCH ×2 (05:24→08:33)
[2022-08-14] MEDS: PANTOPRAZOLE 40 MG TABLET PO SCH (06:13)
[2022-08-14] MEDS: MULTIVITAMINS, THERA 1 EACH TAB PO SCH (08:32)
[2022-08-14] MEDS: NICOTINE 21MG/24HR PATCH TRANSDERM SCH (08:33)
[2022-08-14 08:54] VITALS: BP 182/77; PULSE 74; RESP 18; TEMP 97.9
[2022-08-14 09:30] LABS: Basophils # (A) 0.02 X 10*3/uL (0.00-0.10); Basophils % (A) 0.5 %; Eosinophils # (A) 0.08 X 10*3/uL (0.04-0.35); Eosinophils % (A) 1.9 %; HCT 28.1 % (37.2-46.3); HGB 9.6 g/dL (12.0-15.0); Immature Grans, Automated 0.5 %; Lymphocytes % (A) 26.6 %; MCH 26.8 pg (27.0-32.0); MCHC 34.2 g/dL (32.0-37.0); MCV 78.5 fL (80.0-97.0); Monocytes # (A) 0.41 X 10*3/uL (0.20-1.00); Monocytes % (A) 9.9 %; NRBC Per 100 WBC 0 /100 WBCS (0.0-0.0); Neutrophils % (A) 60.6 %; Platelet Count 176 X 10*3/uL (140-440); RBC 3.58 X 10*6/uL (4.10-5.20); RDW 13.3 % (11.5-14.5); WBC 4.13 X 10*3/uL (4.50-10.00)
[2022-08-14 09:51] LABS: African American GFR (CKD) 121.9 (60.0-200.0); Anion Gap 10.6 mmol/L (10.00-18.00); BUN/Creat Ratio 15.2 Ratio (12.00-20.00); Blood Urea Nitrogen 7.6 mg/dL (9.0-27.0); Calcium 8.9 mg/dL (8.7-10.3); Carbon Dioxide 21.4 mmol/L (20.0-27.5); Non-African American GFR(CKD) 105.2 (60.0-200.0); Potassium 4.1 mmol/L (3.5-5.5)
[2022-08-14] MEDS ORDERED: amLODIPine 5 MG TAB PO SCH (10:00)
--- NOTE | 2022-08-14 10:11 | P.DS ---
Providers Date of admission: 08/13/22 08:40 Expected date of discharge: 08/14/22 Attending physician: Mario Arce MD Consults: 08/11/22 09:50 Consult Physician Routine Consulting Provider: Omar Oliver Consult Reason/Comments: DM ulcer with cellulitis Do you want consulting provider notified?: Yes Primary care physician: [facility] Course: Patient declining treatment, left AMA. Plan - Discharge Summary Discharge Rx Participant: No New Discharge Prescriptions: New Linezolid 600 mg PO BID 14 Days #28 tablet No Action Aspirin 325 mg PO DAILY metFORMIN HCL [Glucophage] 1,000 mg PO BID Albuterol Inhaler [Ventolin Hfa Inhaler] 1 - 2 puff INHALATION RT-Q4H PRN PRN Reason: Shortness Of Breath Sulfamethox-Tmp 800-160Mg [Bactrim DS 800-160 mg] 1 tab PO Q12HR Docusate [Colace] 100 mg PO HS Multivit-Min/Iron/Folic/Lutein [Centrum Silver Women Tablet] 1 tab PO DAILY Magnesium Oxide [Mag-Ox] 400 mg PO HS Sennosides [Senokot] 8.6 mg PO HS Ergocalciferol (Vitamin D2) [Drisdol (50,000 Iu)] 1,250 mcg PO Q7D carBAMazepine [carBAMazepine ER] 100 mg PO DIRECTED Discharge Medication List Aspirin 325 mg PO DAILY 07/08/17 [History] Albuterol Inhaler [Ventolin Hfa Inhaler] 1 - 2 puff INHALATION RT-Q4H PRN [History] metFORMIN HCL [Glucophage] 1,000 mg PO BID 03/07/20 [History] Magnesium Oxide [Mag-Ox] 400 mg PO HS 06/19/22 [History] Sulfamethox-Tmp 800-160Mg [Bactrim DS 800-160 mg] 1 tab PO Q12HR 06/19/22 [History] Docusate [Colace] 100 mg PO HS 08/10/22 [History] Ergocalciferol (Vitamin D2) [Drisdol (50,000 Iu)] 1,250 mcg PO Q7D 08/10/22 [History] Multivit-Min/Iron/Folic/Lutein [Centrum Silver Women Tablet] 1 tab PO DAILY 08/10/22 [History] Sennosides [Senokot] 8.6 mg PO HS 08/10/22 [History] carBAMazepine [carBAMazepine ER] 100 mg PO DIRECTED 08/10/22 [History] Linezolid 600 mg PO BID 14 Days #28 tablet 08/14/22 [Rx] Follow up Appointment(s)/Referral(s): Tila Viera MD [Primary Care Provider] - 3 Days Activity/Diet/Wound Care/Special Instructions: Left AMA Discharge Disposition: Left Against Medical Advice
== END 2022-08-14 09:49 | disposition left against medical advice (07) | DRG 639 ==
LOC: EC 16:38 → 6NMEDSUR 19:59 → OBSVTOIN 08-13 08:40
PROVIDERS: ADMIT Family Medicine; ATTEND Family Medicine
DX: E11.622 Type 2 diabetes mellitus with other skin ulcer (principal); E11.628 Type 2 diabetes mellitus with other skin complications; E11.65 Type 2 diabetes mellitus with hyperglycemia; F32.A Depression, unspecified; E66.9 Obesity, unspecified; J45.909 Unspecified asthma, uncomplicated; L97.509 Non-pressure chronic ulcer of other part of unspecified foot with unspecified severity; L03.032 Cellulitis of left toe; F17.210 Nicotine dependence, cigarettes, uncomplicated; K21.9 Gastro-esophageal reflux disease without esophagitis; G47.33 Obstructive sleep apnea (adult) (pediatric); F41.9 Anxiety disorder, unspecified; L84 Corns and callosities; L98.499 Non-pressure chronic ulcer of skin of other sites with unspecified severity; M79.89 Other specified soft tissue disorders; Z53.29 Procedure and treatment not carried out because of patient's decision for other reasons; Z28.310 Unvaccinated for COVID-19; Z79.82 Long term (current) use of aspirin; Z79.84 Long term (current) use of oral hypoglycemic drugs; Z86.11 Personal history of tuberculosis; Z68.29 Body mass index [BMI] 29.0-29.9, adult; Z87.19 Personal history of other diseases of the digestive system
CPT/HCPCS: 36415; 80048; 80053; 80202; 83036; 83605; 84132; 85025; 87040; 87070; 87075; 87205; 93923; 94644; 96365; 96375; 96376; 99285